=== PATIENT | male | born 1990 | race Hispanic/Latino ===

== ENCOUNTER → 2023-07-27 | Day surgery (SDC) | payer BC ==
[~2023-07-27] MED LIST: ASHWAGANDHA500 MG PO; FISH OIL 1,001000 M1 PO; LACTATED RINGER'S 1,000 ML ONE; LIDOCAINE HCL 2% LOCAL INJ 5 ML SDV VIAL INJ ONE; MIDAZOLAM HCL 2 MG/2 ML VIAL ONE; PROPOFOL IV EMULSION 10 MG/ML 20 ML VIAL ONE; VITAMIN B122500 MCG PO; VITAMIN C1000 MG PO
[2023-07-27 09:40] VITALS: TEMP 98.5
[2023-07-27 09:55] VITALS: BP 116/83; RESP 18; O2SAT 100
== END | disposition home or self-care (01) ==
LOC: OR 06:15
PROVIDERS: ATTEND Internal Medicine Gastroenterology
DX: K29.70 Gastritis, unspecified, without bleeding (principal); K20.90 Esophagitis, unspecified without bleeding; K44.9 Diaphragmatic hernia without obstruction or gangrene; K64.8 Other hemorrhoids; R74.8 Abnormal levels of other serum enzymes; R30.0 Dysuria; Z87.19 Personal history of other diseases of the digestive system
CPT/HCPCS: 43239; 45378; J2001; J2250; J2704; J7121